=== PATIENT | female | born 2005 | race Caucasian/White ===

== ENCOUNTER 2024-08-31 17:48 | Emergency (ER) | payer MEDICAID, OTHER ==
[~2024-08-31] VITALS: Ht 154.9 cm; Wt 68.0 kg
[2024-08-31 18:38] VITALS: PULSE 90; RESP 16; TEMP 98.1; O2SAT 97
[2024-08-31] MEDS: LIDOCAINE HCL 1% LOCAL INJ 20 ML VIAL INJ STA (18:39)
[2024-08-31] MEDS ORDERED: AMOX TR-K CLV1 EAC2 PO (18:43)
[2024-08-31] MEDS ORDERED: ULTRAM 50MG50 MG PO (18:43)
[2024-08-31] MEDS ORDERED: KETOROLAC TROME10 MG PO (18:45)
== END 2024-08-31 18:55 | disposition home or self-care (01) ==
LOC: ER 17:53
DX: L02.214 Cutaneous abscess of groin (principal)
CPT/HCPCS: 99283